=== PATIENT | male | born 1970 | race Caucasian/White ===

== ENCOUNTER → 2021-04-16 | Outpatient (CLI) | payer BC | LOC: LAB SHORT 07:11 → LAB 07:11 | DX: K52.9 Noninfective gastroenteritis and colitis, unspecified (principal) | CPT/HCPCS: 87015; 87045; 87046; 87205; 87899 ==

== ENCOUNTER → 2021-06-10 | Outpatient (CLI) | payer BC ==
[2021-06-10 13:56] LABS: C DIFFICILE DNA NEGATIVE (Negative)
== END | disposition home or self-care (01) ==
LOC: LAB SHORT 10:02 → LAB 10:02
PROVIDERS: Family Medicine
DX: K52.9 Noninfective gastroenteritis and colitis, unspecified (principal)
CPT/HCPCS: 87338; 87493

== ENCOUNTER → 2023-06-07 | Outpatient (CLI) | payer OTHER ==
[2023-06-07 10:29] LABS: Source, Urine Clean Catch
[2023-06-07 12:09] LABS: Appearance, Urine Clear (Clear); Bilirubin, Urine Neg (Neg); Blood, Urine Neg (Neg); Glucose Qualitative, Urine Neg (Neg); Ketones, Urine Neg (Neg); Leukocyte Esterase, Urine Neg (Neg); Nitrite, Urine Neg (Neg); Protein, Urine Neg (Neg); Urobilinogen, Urine NORM (Normal)
[2023-06-07 12:15] LABS: Color, Urine Pale Yellow (P-Yellow)
== END | disposition home or self-care (01) ==
LOC: LAB SHORT 10:27 → LAB 10:27
PROVIDERS: Family Medicine
DX: R30.0 Dysuria (principal)
CPT/HCPCS: 81003

== ENCOUNTER 2024-08-19 17:14 | Emergency (ER) | payer OTHER ==
[~2024-08-19] VITALS: Ht 185.4 cm; Wt 115.7 kg
[2024-08-19 17:38] VITALS: BP 192/124
[2024-08-19] MEDS ORDERED: METPRE4DP PO (17:42)
[2024-08-19] MEDS ORDERED: IBUP800 PO (17:42)
[2024-08-19] MEDS ORDERED: OXAYDO5 M1 PO (17:42)
== END 2024-08-19 17:47 | disposition other institution (70) ==
LOC: ER 17:14
DX: M54.16 Radiculopathy, lumbar region (principal); I10 Essential (primary) hypertension; Z79.52 Long term (current) use of systemic steroids
CPT/HCPCS: 99283

== ENCOUNTER 2024-09-02 16:41 | Emergency (ER) | payer OTHER ==
[~2024-09-02] VITALS: Ht 185.4 cm; Wt 111.1 kg
[~2024-09-02 16:41] MED LIST: IBUP800 PO; METPRE4DP PO; OXAYDO5 M1 PO
[2024-09-02 17:03] VITALS: BP 168/118
[2024-09-02] MEDS ORDERED: MOBIC15 MG PO (17:13)
[2024-09-02] MEDS ORDERED: Voltaren100 GM TOP (17:13)
[2024-09-02] MEDS ORDERED: LIDO700A20 TOP (17:13)
[2024-09-02] MEDS ORDERED: TIZA4 PO (17:13)
== END 2024-09-02 18:00 | disposition short-term general hospital (02) ==
LOC: ER 16:41
DX: M54.17 Radiculopathy, lumbosacral region (principal); I10 Essential (primary) hypertension
CPT/HCPCS: 99282

== ENCOUNTER 2025-03-21 14:19 | Day surgery (SDC) | payer BC ==
[~2025-03-21] VITALS: Ht 185.4 cm; Wt 105.0 kg
[~2025-03-21 14:19] MED LIST changes: +LIDO700A20 TOP; +LISI20 PO; +MOBIC15 MG PO; +TIZA4 PO; +Voltaren100 GM TOP
[2025-03-21 14:56] VITALS: BP 164/101
--- NOTE | 2025-03-21 15:29 | NUR ---
03/21/25 1529 Amadeo Lowry History, Chart, Medications and Allergies reviewed before start of procedure.MONITOR INTACT WITH CONTINUOUS PULSE OXIMETRY, CONTINUOUS END TITAL CO2, 3-LEAD EKG AND INTERMITTENT BLOOD PRESSURE.3-LEAD EKG REVIEWED WITH PHYSICIAN PRIOR TO START OF PROCEDURE.O2 VIA POM INTACT THROUGHOUT SEDATION/PROCEDURE.See Anesthesia record.
[2025-03-21 15:57] VITALS: BP 103/74
--- NOTE | 2025-03-21 16:14 | NUR ---
Discharge instructions reviewed with patient. Patient verbalizes understanding. Copy given to patient to take home. Patient States Post-Procedure ride home has been arranged. Discharged via wheelchair to private car for ride home.
== END 2025-03-21 16:15 | disposition home or self-care (01) ==
LOC: ORSCMMR 14:19 → ORD 15:30 → ORSCMMR 16:15
PROVIDERS: Family Medicine
PROC: 0DJD8ZZ Inspection of Lower Intestinal Tract, Via Natural or Artificial Opening Endoscopic (ICD-10-PCS; principal; 2025-03-21 15:30)
DX: Z12.11 Encounter for screening for malignant neoplasm of colon (principal); K64.0 First degree hemorrhoids; E78.5 Hyperlipidemia, unspecified; J45.909 Unspecified asthma, uncomplicated; Z79.899 Other long term (current) drug therapy
CPT/HCPCS: J2704; J7120